=== PATIENT | male | born 1990 | race Caucasian/White ===

== ENCOUNTER 2018-10-10 22:17 | Emergency (ER) | payer MEDICAID, OTHER, SELFPAY ==
--- NOTE | 2018-10-10 23:54 | ERPHSYRPT ---
- History of Present Illness Time Seen by Provider: 10/10/18 23:46 Historian: patient Exam Limitations: no limitations Patient Subjective Stated Complaint: vomiting starting sunday. everything he eats, he vomits up 2 hours later. c/o loose frequent stools Triage Nursing Assessment: right and left upper quadrants of abdomen painful. pt points to stomach as center of painful area. Physician History: 28-year-old white with history of asthma, who has had his appendix removed arrives with complaint of vomiting every time he eats having loose stools symptoms since yesterday. Patient states occasionally has some mild abdominal pain no fevers. Past medical history asthma, Past surgical history includes appendectomy Social history positive for occasional alcohol use positive tobacco use. . Timing/Duration: day(s) Activities at Onset: none (2 days) Quality: other (occasional slight abdominal crampingperiumbilical) Abdominal Pain Onset Location: periumbilical Pain Radiation: no radiation Severity of Pain-Max: none Severity of Pain-Current: none Modifying Factors: Improves With: eating, vomiting. Worsens With: analgesics, antacids, breathing, coughing, defecating, exercise, lying down, urinating, position, walking Associated Symptoms: diarrhea, nausea, vomiting, No back, No chest pain, No diaphoresis, No fever/chills, No fatigue, No headache, No heartburn, No loss of appetite, No neck pain, No rash, No shortness of breath, No syncope, No testicular pain Previous symptoms: no prior history Allergies/Adverse Reactions: pecan Allergy (Uncoded 05/13/14 18:14) turtle meat Allergy (Uncoded 05/13/14 18:14) Hx Tetanus, Diphtheria Vaccination/Date Given: (UNKNOWN) Hx Influenza Vaccination/Date Given: No Hx Pneumococcal Vaccination/Date Given: No - Review of Systems Constitutional: No Fever, No Chills Eyes: No Symptoms Ears, Nose, & Throat: No Symptoms Respiratory: No Cough, No Dyspnea Cardiac: No Chest Pain, No Edema, No Syncope Abdominal/Gastrointestinal: Abdominal Pain (slight abdominal pain periumbilical) , Nausea, Vomiting, Diarrhea, No Constipation, No Hematemesis, No Hematochezia, No Melena, No Dysphagia, No Appetite Changes Genitourinary Symptoms: No Dysuria Musculoskeletal: No Back Pain, No Neck Pain Skin: No Rash Neurological: No Dizziness, No Focal Weakness, No Sensory Changes Psychological: No Symptoms Endocrine: No Symptoms All Other Systems: Reviewed and Negative - Past Medical History Pertinent Past Medical History: Yes Respiratory History: Asthma - Past Surgical History Past Surgical History: Yes Gastrointestinal: Appendectomy - Social History Smoking Status: Current every day smoker How long have you smoked: 6 YEARS Exposure to second hand smoke: Yes Drug Use: none Patient Lives Alone: No - Nursing Vital Signs Nursing Vital Signs: Initial Vital Signs Temperature 98.2 F 10/10/18 22:26 Pulse Rate 85 10/10/18 22:26 Respiratory Rate 20 10/10/18 22:26 Blood Pressure 150/95 10/10/18 22:26 O2 Sat by Pulse Oximetry 100 10/10/18 22:26 Pain Scale Pain Intensity 5 - Physical Exam General Appearance: mild distress, alert Eye Exam: PERRL/EOMI, eyes nml inspection Ears, Nose, Throat Exam: normal ENT inspection, pharynx normal, moist mucous membranes Neck Exam: normal inspection, non-tender, supple, full range of motion Respiratory Exam: normal breath sounds, lungs clear, No respiratory distress Cardiovascular Exam: regular rate/rhythm, normal heart sounds, capillary refill <2 sec Gastrointestinal/Abdomen Exam: soft, No tenderness, No mass Back Exam: normal inspection, normal range of motion, No CVA tenderness, No vertebral tenderness Extremity Exam: normal inspection (and if you see any x-ray reports that cigarettes or so to see him there isas was his nasal cannula down and the other one is probably some), normal range of motion, pelvis stable Neurologic Exam: alert, oriented x 3, cooperative, creative services designer II-XII nml as tested, normal mood/affect, nml cerebellar function, sensation nml, No motor deficits Skin Exam: normal color, warm, dry SpO2 Interpretation: normal (100%) SpO2: 100 - Course Nursing assessment & vital signs reviewed: Yes Ordered Tests: Active Orders 24 hr Category Date Time Status IV Insertion STAT Care 10/10/18 23:50 Active AMYLASE Stat Lab 10/10/18 23:59 Completed CBC W DIFF Stat Lab 10/10/18 23:59 Completed CMP Stat Lab 10/10/18 23:59 Completed LIPASE Stat Lab 10/10/18 23:59 Completed UA W/RFX UR CULTURE Stat Lab 10/10/18 02:36 Completed Urine Triage Profile Stat Lab 10/10/18 02:36 Completed Medication Summary Discontinued Medications Generic Name Dose Route Start Last Admin Trade Name Priya PRN Reason Stop Dose Admin Sodium Chloride 1,000 mls @ 999 mls/hr 10/10/18 23:50 10/11/18 00:01 Sodium Chloride 0.9% 1000 Ml IV 10/11/18 00:50 999 mls/hr .Q1H1M STA Administration Sodium Chloride Confirm 10/10/18 23:59 Sodium Chloride 0.9% 1000 Ml Administered 10/11/18 00:00 Dose 1,000 mls @ ud .ROUTE .STK-MED ONE Sodium Chloride 1,000 mls @ 999 mls/hr 10/11/18 00:41 10/11/18 01:34 Sodium Chloride 0.9% 1000 Ml IV 10/11/18 01:41 999 mls/hr .Q1H1M STA Administration Sodium Chloride Confirm 10/11/18 01:28 Sodium Chloride 0.9% 1000 Ml Administered 10/11/18 01:29 Dose 1,000 mls @ ud .ROUTE .STK-MED ONE Ondansetron HCl 4 mg 10/10/18 23:50 10/11/18 00:01 Zofran 4 Mg/2 Ml Vial IV 10/10/18 23:51 4 mg STAT ONE Administration Ondansetron HCl Confirm 10/10/18 23:59 Zofran 4 Mg/2 Ml Vial Administered 10/11/18 00:00 Dose 4 mg .ROUTE .STK-MED ONE Lab/Rad Data: Laboratory Result Diagrams 10/10/18 23:59 10/10/18 23:59 Laboratory Results 10/10/18 10/10/18 10/10/18 Range/Units 23:59 23:59 02:36 WBC 8.5 (4.0-10.5) K/mm3 RBC 4.80 (4.1-5.6) M/mm3 Hgb 15.1 (12.5-18.0) gm/dl Hct 43.4 (42-50) % MCV 90.4 (78-100) fl MCH 31.5 (26-32) pg MCHC 34.8 (32-36) g/dl RDW 13.1 (11.5-14.0) % Plt Count 198 (150-450) K/mm3 MPV 10.5 H (6-9.5) fl Gran % 68.0 H (36.0-66.0) % Eos # (Auto) 0.17 (0-0.5) Absolute Lymphs (auto) 1.79 (1.0-4.6) Absolute Monos (auto) 0.75 (0.0-1.3) Lymphocytes % 21.0 L (24.0-44.0) % Monocytes % 8.8 (0.0-12.0) % Eosinophils % 2.0 (0.00-5.0) % Basophils % 0.2 (0.0-0.4) % Absolute Granulocytes 5.78 (1.4-6.9) Basophils # 0.02 (0-0.4) Sodium 139 (137-145) mmol/L Potassium 3.8 (3.5-5.1) mmol/L Chloride 101 (98-107) mmol/L Carbon Dioxide 28 (22-30) mmol/L Anion Gap 13.4 (5-15) MEQ/L BUN 13 (9-20) mg/dL Creatinine 0.86 (0.66-1.25) mg/dL Estimated GFR > 60.0 ML/MIN Glucose 89 (74-106) mg/dL Calcium 9.6 (8.4-10.2) mg/dL Total Bilirubin 0.40 (0.2-1.3) mg/dL AST 19 (17-59) U/L ALT 17 (0-50) U/L Alkaline Phosphatase 63 (38-126) U/L Serum Total Protein 7.4 (6.3-8.2) g/dL Albumin 4.3 (3.5-5.0) g/dL Amylase 82 (30-110) U/L Lipase 44 (23-300) U/L Urine Color (YELLOW) Urine Appearance (CLEAR) Urine pH (5-6) Ur Specific [place] (1.005-1.025) Urine Protein (Negative) Urine Ketones (NEGATIVE) Urine Blood (0-5) Chavo/ul Urine Nitrite (NEGATIVE) Urine Bilirubin (NEGATIVE) Urine Urobilinogen (0-1) mg/dL Ur Leukocyte Esterase (NEGATIVE) Urine WBC (Auto) (0-5) /HPF Urine RBC (Auto) (0-2) /HPF U Epithel Cells (Auto) (FEW) /HPF Urine Bacteria (Auto) (NEGATIVE) /HPF Urine Mucus (Auto) (NEGATIVE) /HPF Urine Culture Reflexed (NO) Urine Glucose (NEGATIVE) mg/dL Urine Opiates Level NEGATIVE (NEGATIVE) Ur Methadone NEGATIVE (NEGATIVE) Urine Barbiturates NEGATIVE (NEGATIVE) Ur Phencyclidine (PCP) NEGATIVE (NEGATIVE) Urine Amphetamine NEGATIVE (NEGATIVE) U Benzodiazepine Level NEGATIVE (NEGATIVE) Urine Cocaine NEGATIVE (NEGATIVE) Urine Marijuana (THC) NEGATIVE (NEGATIVE) 10/10/18 Range/Units 02:36 WBC (4.0-10.5) K/mm3 RBC (4.1-5.6) M/mm3 Hgb (12.5-18.0) gm/dl Hct (42-50) % MCV (78-100) fl MCH (26-32) pg MCHC (32-36) g/dl RDW (11.5-14.0) % Plt Count (150-450) K/mm3 MPV (6-9.5) fl Gran % (36.0-66.0) % Eos # (Auto) (0-0.5) Absolute Lymphs (auto) (1.0-4.6) Absolute Monos (auto) (0.0-1.3) Lymphocytes % (24.0-44.0) % Monocytes % (0.0-12.0) % Eosinophils % (0.00-5.0) % Basophils % (0.0-0.4) % Absolute Granulocytes (1.4-6.9) Basophils # (0-0.4) Sodium (137-145) mmol/L Potassium (3.5-5.1) mmol/L Chloride (98-107) mmol/L Carbon Dioxide (22-30) mmol/L Anion Gap (5-15) MEQ/L BUN (9-20) mg/dL Creatinine (0.66-1.25) mg/dL Estimated GFR ML/MIN Glucose (74-106) mg/dL Calcium (8.4-10.2) mg/dL Total Bilirubin (0.2-1.3) mg/dL AST (17-59) U/L ALT (0-50) U/L Alkaline Phosphatase (38-126) U/L Serum Total Protein (6.3-8.2) g/dL Albumin (3.5-5.0) g/dL Amylase (30-110) U/L Lipase (23-300) U/L Urine Color YELLOW (YELLOW) Urine Appearance CLEAR (CLEAR) Urine pH 7.0 (5-6) Ur Specific [place] 1.011 (1.005-1.025) Urine Protein NEGATIVE (Negative) Urine Ketones NEGATIVE (NEGATIVE) Urine Blood NEGATIVE (0-5) Chavo/ul Urine Nitrite NEGATIVE (NEGATIVE) Urine Bilirubin NEGATIVE (NEGATIVE) Urine Urobilinogen NEGATIVE (0-1) mg/dL Ur Leukocyte Esterase NEGATIVE (NEGATIVE) Urine WBC (Auto) NONE (0-5) /HPF Urine RBC (Auto) NONE (0-2) /HPF U Epithel Cells (Auto) NONE (FEW) /HPF Urine Bacteria (Auto) NONE SEEN (NEGATIVE) /HPF Urine Mucus (Auto) SLIGHT (NEGATIVE) /HPF Urine Culture Reflexed NO (NO) Urine Glucose NEGATIVE (NEGATIVE) mg/dL Urine Opiates Level (NEGATIVE) Ur Methadone (NEGATIVE) Urine Barbiturates (NEGATIVE) Ur Phencyclidine (PCP) (NEGATIVE) Urine Amphetamine (NEGATIVE) U Benzodiazepine Level (NEGATIVE) Urine Cocaine (NEGATIVE) Urine Marijuana (THC) (NEGATIVE) - Progress Progress: improved Progress Note: 10/11/18 03:16 Patient feeling better after 2 L of normal saline and Zofran 4 mg IV. No longer vomiting. Able to keep fluids down. Labs essentially negative Will send home with Zofran clear fluids - Departure Departure Disposition: Home Clinical Impression: Vomiting Qualifiers: Vomiting type: unspecified Vomiting Intractability: non-intractable Nausea presence: with nausea Qualified Code(s): R11.2 - Nausea with vomiting, unspecified Condition: Fair Critical Care Time: No Referrals: DOCTOR,NO FAMILY [Primary Care Provider] - Additional Instructions: Return home. Plenty of fluids clear fluids only 24-48 hours if nausea and vomiting. Zofran as prescribed. Followup with your family DrRocio if symptoms are worse no better in 48 hours or persist longer than 72 hours. Return for acute distress severe symptoms or for any problems. Prescriptions: Ondansetron ODT 4 MG [Zofran Odt 4 mg] 4 mg PO Q6H PRN PRN #10 tab.rapdis PRN Reason: nauseaand vomiting
[2018-10-10] MEDS ORDERED: Zofran 4 MG/2 ML VIAL ONE (23:59)
[2018-10-10] MEDS ORDERED: Sodium Chloride 0.9% 1000 ML 1,000 ML ONE (23:59)
[2018-10-11] MEDS: Zofran 4 MG/2 ML VIAL IV ONE (00:01)
[2018-10-11] MEDS: Sodium Chloride 0.9% 1000 ML 1,000 ML IV STA ×2 (00:01→01:34)
[2018-10-11 00:02] LABS: BASOPHIL % 0.2 % (0.0-0.4); Basophil (Absolute #) 0.02 (0-0.4); Eosinophil (Absolute #) 0.17 (0-0.5); Granulocyte Absolute (ANC) 5.78 (1.4-6.9); Hematocrit 43.4 % (42-50); Hemoglobin 15.1 gm/dl (12.5-18.0); Lymphocyte (Absolute #) 1.79 (1.0-4.6); Mean Cell Volume 90.4 fl (78-100); Mean Corpuscular Hemoglobin 31.5 pg (26-32); Mean Corpuscular Hgb Concent. 34.8 g/dl (32-36); Mean Platelet Volume 10.5 fl (6-9.5); Monocyte (Absolute #) 0.75 (0.0-1.3); Monocytes % 8.8 % (0.0-12.0); Platelet Count 198 K/mm3 (150-450); Red Cell Distribution Width 13.1 % (11.5-14.0); White Blood Count 8.5 K/mm3 (4.0-10.5)
[2018-10-11 00:15] LABS: ALBUMIN 4.3 g/dL (3.5-5.0); ALKALINE PHOSPHATASE 63 U/L (38-126); AMYLASE 82 U/L (30-110); ANION GAP 13.4 MEQ/L (5-15); BLOOD UREA NITROGEN 13 mg/dL (9-20); CHLORIDE 101 mmol/L (98-107); Calcium 9.6 mg/dL (8.4-10.2); Carbon Dioxide 28 mmol/L (22-30); Creatinine 1 0.86 mg/dL (0.66-1.25); Glucose 89 mg/dL (74-106); LIPASE 44 U/L (23-300); Potassium 3.8 mmol/L (3.5-5.1); SGOT/AST 19 U/L (17-59); SGPT/ALT 17 U/L (0-50); SODIUM 139 mmol/L (137-145); Total Protein 7.4 g/dL (6.3-8.2)
[2018-10-11] MEDS ORDERED: Sodium Chloride 0.9% 1000 ML 1,000 ML ONE (01:28)
[2018-10-11 02:40] VITALS: BP 121/51
[2018-10-11 02:41] VITALS: PULSE 65
[2018-10-11 02:42] LABS: Appearance CLEAR (CLEAR); Bilirubin NEGATIVE (NEGATIVE); Blood NEGATIVE Ery/ul (0-5); Glucose NEGATIVE (NEGATIVE); Ketones NEGATIVE (NEGATIVE); Leukocyte Esterase NEGATIVE (NEGATIVE); Mucus SLIGHT /HPF (NEGATIVE); Nitrite NEGATIVE (NEGATIVE); Protein,Urine Dip NEGATIVE (Negative); Specific Gravity 1.011 (1.005-1.025); Urobilinogen NEGATIVE mg/dL (0-1)
[2018-10-11 02:47] LABS: Bacteria NONE SEEN /HPF (NEGATIVE)
[2018-10-11 02:56] LABS: Amphetamine,Urine NEGATIVE (NEGATIVE); Barbiturate,Urine NEGATIVE (NEGATIVE); Benzodiazepine,Urine NEGATIVE (NEGATIVE); Cocaine,Urine NEGATIVE (NEGATIVE); Methadone,Urine NEGATIVE (NEGATIVE); Opiate,Urine NEGATIVE (NEGATIVE); PCP,Urine NEGATIVE (NEGATIVE); THC,Urine NEGATIVE (NEGATIVE)
[2018-10-11 03:20] VITALS: O2SAT 100
[2018-10-11] MEDS ORDERED: ZOFRAN ODT 4 MG PO ONE (03:20)
[2018-10-11] MEDS ORDERED: ZOFRAN ODT 4 MG ONE (03:23)
== END 2018-10-11 03:33 | disposition home or self-care (01) ==
LOC: ED 22:17
DX: R11.2 Nausea with vomiting, unspecified (principal)
CPT/HCPCS: 36000; 36415; 80053; 80307; 81001; 82150; 83690; 85025; 96360; 96361; 96374; 99284; J2405; Q0162; G0480

== ENCOUNTER 2020-02-16 20:13 | Emergency (ER) | payer MEDICAID ==
--- NOTE | 2020-02-16 21:19 | ERPHSYRPT ---
- History of Present Illness Time Seen by Provider: 02/16/20 20:30 Source: patient Exam Limitations: no limitations Patient Subjective Stated Complaint: pt states he has been having intermittent cramping abd pain, gas pain, and frequent loose or soft stools. Triage Nursing Assessment: pt alert and oriented, answers qustions approp. pt ambulatory with steady gait noted. respirations nonlabored with lungs cta. abd soft and nontender. bowel sounds present x4. skin pink warm and dry. Physician History: Patient is a 29-year-old male presents to our ED for evaluation of intermittent soft stools gas and abdominal cramping over the past 10 days. Patient states this correlates with increased intake of soda pop. No trauma. No fever. No nausea or vomiting. Diarrhea is nonbloody. Patient is currently asymptomatic. Symptoms are mild to moderate in intensity when present. No specific worsening or improving factors. No recent travel. No recent antibiotic use. Patient works installing [employer]. Patient is otherwise healthy. He voices no other complaints at this time. Timing/Duration: week(s) Severity: moderate Modifying Factors: Improves With: nothing Associated Symptoms: abdominal pain, No nausea, No vomiting, No shortness of breath, No diaphoresis, No cough, No chills, No chest pain, No fever, No headaches, No loss of appetite, No malaise Allergies/Adverse Reactions: pecan Allergy (Uncoded 02/16/20 20:34) turtle meat Allergy (Uncoded 02/16/20 20:34) Home Medications: No Reportable Medications [No Reported Medications] 02/16/20 [History] Hx Tetanus, Diphtheria Vaccination/Date Given: (UNKNOWN) Hx Influenza Vaccination/Date Given: No Hx Pneumococcal Vaccination/Date Given: No Travel Risk - International Travel Have you traveled outside of the country in past 3 weeks: No - Coronavirus Screening Are you exhibiting any of the following symptoms?: No Close contact with a COVID-19 positive Pt in past 14-21 Days: No - Review of Systems Constitutional: No Symptoms, No Fever, No Chills Eyes: No Symptoms Ears, Nose, & Throat: No Symptoms Respiratory: No Symptoms, No Cough, No Dyspnea Cardiac: No Symptoms, No Chest Pain, No Edema, No Syncope Abdominal/Gastrointestinal: No Symptoms, No Abdominal Pain, No Nausea, No Vomiting, No Diarrhea Genitourinary Symptoms: No Symptoms, No Dysuria Musculoskeletal: No Symptoms, No Back Pain, No Neck Pain Skin: No Symptoms, No Rash Neurological: No Symptoms, No Dizziness, No Focal Weakness, No Sensory Changes Psychological: No Symptoms Endocrine: No Symptoms Hematologic/Lymphatic: No Symptoms Immunological/Allergic: No Symptoms All Other Systems: Reviewed and Negative - Past Medical History Pertinent Past Medical History: Yes Respiratory History: Asthma - Past Surgical History Past Surgical History: Yes Gastrointestinal: Appendectomy - Social History Smoking Status: Current every day smoker How long have you smoked: 20 yrs Exposure to second hand smoke: Yes Drug Use: none Patient Lives Alone: No - Nursing Vital Signs Nursing Vital Signs: Initial Vital Signs Temperature 98.1 F 02/16/20 20:21 Pulse Rate 79 02/16/20 20:21 Respiratory Rate 16 02/16/20 20:21 Blood Pressure 167/101 02/16/20 20:21 O2 Sat by Pulse Oximetry 99 02/16/20 20:21 Pain Scale Pain Intensity 0 - Physical Exam General Appearance: no apparent distress, alert Eye Exam: PERRL/EOMI, eyes nml inspection Ears, Nose, Throat Exam: normal ENT inspection, TMs normal, pharynx normal, moist mucous membranes Neck Exam: normal inspection, non-tender, supple, full range of motion Respiratory Exam: normal breath sounds, lungs clear, No respiratory distress Cardiovascular Exam: regular rate/rhythm, normal heart sounds, normal peripheral pulses Gastrointestinal/Abdomen Exam: soft, normal bowel sounds, other (Post appendectomy surgical scars observed. Scars well-healed. Abdominal exam is benign.), No tenderness, No mass Back Exam: normal inspection, normal range of motion, No CVA tenderness, No vertebral tenderness Extremity Exam: normal inspection, normal range of motion, pelvis stable Neurologic Exam: alert, oriented x 3, cooperative, normal mood/affect, nml cerebellar function, nml station & gait, sensation nml, No motor deficits Skin Exam: normal color, warm, dry, No rash Lymphatic Exam: No adenopathy SpO2 Interpretation: normal SpO2: 99 O2 Delivery: Room Air - Course Nursing assessment & vital signs reviewed: Yes - CT Exams Abdomen/Pelvis CT Interpretation: Tele-radiologist Report (Negative abdomen pelvis CT scan.) Ordered Tests: Active Orders 24 hr Category Date Time Status ABDOMEN AND PELVIS W/0 CONTRAS [CT] Stat Exams 02/16/20 20:29 Taken UA W/RFX UR CULTURE Stat Lab 02/16/20 21:07 Ordered - Progress Progress: improved Progress Note: 02/16/20 21:24 Patient reassessed. He remains asymptomatic. CT scan negative for acute intra- abdominal pathology. It appears that patient has a acute diarrheal illness. No indication for antibiotics. No recent travel. Patient given instructions on a brat diet. Patient also advised to try [id number] loperamide. This information was given to patient and he has not stored in his phone. Patient requested a work note. Work note granted. Patient voices no other complaints concerns at this time. Patient states he is ready for discharge. - Departure Departure Disposition: Home Clinical Impression: Acute diarrhea Condition: Stable Critical Care Time: No Referrals: YARITZA NELSON MD [ACTIVE STAFF] - Additional Instructions: Discharge/Care Plan GILL GUSTAFSON was seen on 02/16/20 in the Emergency Room. The patient was counseled regarding Diagnosis,Lab results, Imaging studies, need for follow up and when to return to the Emergency Room. Prescriptions given: Discharge Note I have spoken with the patient and/or caregivers. I have explained the patient's condition, diagnosis and treatment plan based on the information available to me at this time. I have answered the patient's and/or caregiver's questions and addressed any concerns. The patient and/or caregivers have as good understanding of the patient's diagnosis, condition and treatment plan as can be expected at this point. The vital signs have been stable. The patient's condition is stable and appropriate for discharge from the emergency department. The patient will pursue further outpatient evaluation with the primary care physician or other designated or consulting physician as outlined in the discharge instructions. The patient and/or caregivers are agreeable to this plan of care and follow-up instructions have been explained in detail. The patient and/or caregivers have received these instruction. The patient/and or caregivers are aware that any significant change in condition or worsening of symptoms should prompt an immediate return to this or the closest emergency department or call 911. Forms: Work/School Release Form
[2020-02-16 21:45] LABS: Appearance CLEAR (CLEAR); Bilirubin NEGATIVE (NEGATIVE); Blood NEGATIVE Ery/ul (0-5); Glucose NEGATIVE (NEGATIVE); Ketones NEGATIVE (NEGATIVE); Leukocyte Esterase NEGATIVE (NEGATIVE); Nitrite NEGATIVE (NEGATIVE); Protein,Urine Dip NEGATIVE (Negative); Specific Gravity 1.004 (1.005-1.025); Urobilinogen NEGATIVE mg/dL (0-1)
[2020-02-16 21:50] VITALS: BP 138/85; PULSE 76; O2SAT 98
--- NOTE | 2020-02-17 08:51 | XRAY ---
Indication: Abdomen pain. Multiple contiguous axial images obtained through the abdomen and pelvis without contrast as ordered. Comparison: December 11, 2006. Lung bases remain clear. Heart is not enlarged. Stomach is mildly distended with food/fluid. Noncontrasted stomach and bowel loops appear nonobstructed. Previous appendectomy. No free fluid/air. Gallbladder contracted without gallstones. Remaining liver, gallbladder, pancreas, spleen, adrenal glands, kidneys, ureters, bladder, and aorta appear unremarkable for noncontrast exam. Again small centimeter/subcentimeter periaortic lymph nodes, none pathologically enlarged. Osseous structures intact. No ventral or inguinal hernias. Impression: Again small periaortic lymph nodes presumed reactive. Remaining CT abdomen/pelvis without contrast exam is negative.
== END 2020-02-16 21:53 | disposition home or self-care (01) ==
LOC: ED 20:13
DX: M25.579 Pain in unspecified ankle and joints of unspecified foot (principal); R19.7 Diarrhea, unspecified
CPT/HCPCS: 74176; 81001; 99284

== ENCOUNTER 2020-11-20 20:19 | Emergency (ER) | payer MEDICAID, OTHER ==
--- NOTE | 2020-11-20 20:58 | ERPHSYRPT ---
- History of Present Illness Time Seen by Provider: 11/20/20 20:52 Source: patient Exam Limitations: no limitations Patient Subjective Stated Complaint: C/O N/V and fever. States has had some body aches today. Denies SOB or chest pain. States when he vomits, his lower back hurts. Triage Nursing Assessment: Patient ambulated to room without difficulties. Face is flushed, skin warm to touch. No SOB noted. No cough noted. No vomiting noted during assessment. Patient states last vomited at 1920; undigested food. Hypoactive bowel sounds present. Patient c/o some right sided tenderness with palpation of abdomen. Physician History: C/O N/V and fever. States has had some body aches today. Denies SOB or chest pain. States when he vomits, his lower back hurts.Patient also complaining of generalized body ache. Patient denies any positive Covid contact. Patient has not taken Covid vaccine. Timing/Duration: today Severity: mild Associated Symptoms: nausea, vomiting, abdominal pain, headaches, malaise, weakness Allergies/Adverse Reactions: pecan nut Allergy (Verified 11/20/20 20:47) pecan Allergy (Uncoded 02/16/20 20:34) turtle meat Allergy (Uncoded 02/16/20 20:34) Home Medications: No Reportable Medications [No Reported Medications] 02/16/20 [History] Hx Tetanus, Diphtheria Vaccination/Date Given: Yes Hx Influenza Vaccination/Date Given: No Hx Pneumococcal Vaccination/Date Given: No Immunizations Up to Date: Yes Travel Risk - International Travel Have you traveled outside of the country in past 3 weeks: No - Coronavirus Screening Are you exhibiting any of the following symptoms?: Yes Symptoms: Fever, Vomiting/Diarrhea, Headaches/Body Aches/Fatigue Close contact with a COVID-19 positive Pt in past 14-21 Days: No - Vaccine Status Have you recieved a Covid-19 vaccination: No - Review of Systems Constitutional: Fever, Chills, Malaise Eyes: No Symptoms Ears, Nose, & Throat: No Symptoms Respiratory: No Cough, No Dyspnea Cardiac: No Chest Pain, No Edema, No Syncope Abdominal/Gastrointestinal: Abdominal Pain, Nausea, Vomiting, No Diarrhea Genitourinary Symptoms: No Dysuria Musculoskeletal: Arthralgias, Back Pain, No Neck Pain Skin: No Rash Neurological: No Dizziness, No Focal Weakness, No Sensory Changes Psychological: No Symptoms Endocrine: No Symptoms All Other Systems: Reviewed and Negative - Past Medical History Pertinent Past Medical History: No Neurological History: No Pertinent History ENT History: No Pertinent History Cardiac History: No Pertinent History Respiratory History: No Pertinent History Endocrine Medical History: No Pertinent History Musculoskeletal History: No Pertinent History GI Medical History: No Pertinent History History: No Pertinent History Psycho-Social History: No Pertinent History Male Reproductive Disorders: No Pertinent History - Past Surgical History Past Surgical History: Yes Neuro Surgical History: No Pertinent History Cardiac: No Pertinent History Respiratory: No Pertinent History Gastrointestinal: Appendectomy Genitourinary: No Pertinent History Musculoskeletal: No Pertinent History Male Surgical History: No Pertinent History - Social History Smoking Status: Current every day smoker How long have you smoked: 15 years Exposure to second hand smoke: No Drug Use: none Patient Lives Alone: No - Nursing Vital Signs Nursing Vital Signs: Initial Vital Signs Temperature 100.4 F 11/20/20 20:36 Pulse Rate 79 11/20/20 20:36 Respiratory Rate 20 11/20/20 20:36 Blood Pressure 140/81 11/20/20 20:36 O2 Sat by Pulse Oximetry 99 11/20/20 20:36 - Physical Exam General Appearance: no apparent distress, alert Eye Exam: PERRL/EOMI, eyes nml inspection Ears, Nose, Throat Exam: normal ENT inspection, TMs normal, pharynx normal, moist mucous membranes Neck Exam: normal inspection, non-tender, supple, full range of motion Respiratory Exam: normal breath sounds, lungs clear, No respiratory distress Cardiovascular Exam: regular rate/rhythm, normal heart sounds, normal peripheral pulses Gastrointestinal/Abdomen Exam: soft, normal bowel sounds, No tenderness, No mass Back Exam: normal inspection, normal range of motion, No CVA tenderness, No vertebral tenderness Extremity Exam: normal inspection, normal range of motion, pelvis stable Neurologic Exam: alert, oriented x 3, cooperative, normal mood/affect, nml cerebellar function, nml station & gait, sensation nml, No motor deficits Skin Exam: normal color, warm, dry, No rash Lymphatic Exam: No adenopathy SpO2: 99 - Course Nursing assessment & vital signs reviewed: Yes - Radiology Exams Chest X-ray Interpretation: Reviewed by me (? very early intertitial infiltrate, right lower lobe) Ordered Tests: Active Orders 24 hr Category Date Time Status CHEST 1 VIEW (PORTABLE) Stat Exams 11/20/20 21:06 Taken KUB Stat Exams 11/20/20 21:06 Taken AMYLASE Stat Lab 11/20/20 21:15 Completed CBC W DIFF Stat Lab 11/20/20 21:15 Completed CMP Stat Lab 11/20/20 21:15 Completed LIPASE Stat Lab 11/20/20 21:15 Completed Medication Summary Discontinued Medications Generic Name Dose Route Start Last Admin Trade Name Mateuszq PRN Reason Stop Dose Admin Sodium Chloride 1,000 mls @ 999 mls/hr 11/20/20 21:01 11/20/20 21:05 Sodium Chloride 0.9% 1000 Ml IV 11/20/20 22:01 999 mls/hr .Q1H1M STA Administration Sodium Chloride Confirm 11/20/20 21:04 Sodium Chloride 0.9% 1000 Ml Administered 11/20/20 21:05 Dose 1,000 mls @ ud .ROUTE .STK-MED ONE Ondansetron HCl 4 mg 11/20/20 21:01 11/20/20 21:05 Zofran 4 Mg/2 Ml Vial IV 11/20/20 21:02 4 mg STAT ONE Administration Ondansetron HCl Confirm 11/20/20 21:04 Zofran 4 Mg/2 Ml Vial Administered 11/20/20 21:05 Dose 4 mg .ROUTE .STK-MED ONE Lab/Rad Data: Laboratory Result Diagrams 11/20/20 21:15 11/20/20 21:15 Laboratory Results 11/20/20 11/20/20 Range/Units 21:15 21:15 WBC 3.4 L (4.0-10.5) K/mm3 RBC 4.49 (4.1-5.6) M/mm3 Hgb 13.6 (12.5-18.0) gm/dl Hct 41.3 L (42-50) % MCV 92.0 (78-100) fl MCH 30.3 (26-32) pg MCHC 32.9 (32-36) g/dl RDW 13.0 (11.5-14.0) % Plt Count 131 L (150-450) K/mm3 MPV 11.1 H (7.5-11.0) fl Gran % 61.2 (36.0-66.0) % Eos # (Auto) 0.01 (0-0.5) Absolute Lymphs (auto) 0.65 L (1.0-4.6) Absolute Monos (auto) 0.66 (0.0-1.3) Lymphocytes % 19.0 L (24.0-44.0) % Monocytes % 19.2 H (0.0-12.0) % Eosinophils % 0.3 (0.00-5.0) % Basophils % 0.3 (0.0-0.4) % Absolute Granulocytes 2.10 (1.4-6.9) Basophils # 0.01 (0-0.4) Sodium 137 (137-145) mmol/L Potassium 3.6 (3.5-5.1) mmol/L Chloride 104 (98-107) mmol/L Carbon Dioxide 22 (22-30) mmol/L Anion Gap 14.9 (5-15) MEQ/L BUN 13 (9-20) mg/dL Creatinine 0.93 (0.66-1.25) mg/dL Estimated GFR > 60.0 ML/MIN Glucose 84 (74-106) mg/dL Calcium 8.8 (8.4-10.2) mg/dL Total Bilirubin 0.30 (0.2-1.3) mg/dL AST 36 (17-59) U/L ALT 23 (0-50) U/L Alkaline Phosphatase 73 (38-126) U/L Serum Total Protein 6.7 (6.3-8.2) g/dL Albumin 4.1 (3.5-5.0) g/dL Amylase 77 (30-110) U/L Lipase 69 (23-300) U/L - Progress Progress: improved Counseled pt/family regarding: lab results, diagnosis, need for follow-up, rad results - Departure Departure Disposition: Home Clinical Impression: Nonspecific syndrome suggestive of viral illness, COVID-19 determined by clinical diagnostic criteria Condition: Stable Critical Care Time: No Referrals: DOCTOR,NO FAMILY [Primary Care Provider] - AMANDA GONZALEZ MD [ACTIVE STAFF] - Follow Up with PCP/3 days Instructions: Coronavirus Disease 2019 (COVID-19) (DC) Additional Instructions: Please call your primary care physician or the hospital lab to confirm your diagnosis as we have sent nasal swab for PCR testing for Covid. Till then quarantine your self. Please read the instruction about Covid. Stay hydrated by drinking lots of p.o. fluid. Take Tylenol and ibuprofen 1 tablet each 3 times a day for fever and body ache. Follow-up with your primary care physician on Sunday by calling their office for final lab results for Covid. GILL GUSTAFSON was seen on 11/20/20 n the Emergency Room. At that time you were treated for an emergent condition, during your visit Laboratory, Radiology and/or other procedures may have been ordered. It is very important that you follow-up with your Primary Care Physician NO FAMILY DOCTOR within the next 24- 48 hours to review your Emergency Room visit and the final results of testing that was ordered. Some test results such as Urine Cultures, Blood Cultures, and other cultures if ordered will not be finalized for 24-48 hours. If you do not have a Primary Care Provider please call the medical records department at [phone] to obtain a copy of your results or you may sign into our patient portal to obtain these results by visiting us @ [email or web address] and completing the following steps: 1. Click on the Patient Portal link 2. Click the Patient Self Enrollment Link to complete the enrollment form and entering your 3. Once the enrollment form is completed you will receive an email with a temporary ID and password at the email address you provided. 4. Next choose a user name and password. Your user name must be at least 4 characters long and your password must be at least 4 characters long. 5. Choose a security question from the list and provide your answer to the question. If you already have signed into the Health Portal you may access your Health Care Information 02/10 by the following steps: 1. Login to our website @ [email or web address] 2. Enter your original user name and password. FAQS The [facility] Health Portal is an online tool that contains your Lab Results, Radiology Reports, Visit History, Discharge Instructions and Health Summary Lab and Radiology Results will not be available for 72 hours on the portal. The Portal is a secure site, passwords are encryted and URLs are re-written so they cannot be copied and pasted. You and authorized family members are the only ones who can access your Portal. Also there is a timeout feature that protects your information if you leave the Portal page open. If you have technical difficulty please use the Contact Us link on the page this will allow you to submit any questions you have regarding the Portal or you may contact the Medical Record Department at [phone] ext [phone]. Forms: Work/School Release Form
[2020-11-20] MEDS ORDERED: Zofran 4 MG/2 ML VIAL IV ONE (21:01)
[2020-11-20] MEDS ORDERED: Sodium Chloride 0.9% 1000 ML 1,000 ML IV STA (21:01)
[2020-11-20] MEDS ORDERED: Sodium Chloride 0.9% 1000 ML 1,000 ML ONE (21:04)
[2020-11-20] MEDS ORDERED: Zofran 4 MG/2 ML VIAL ONE (21:04)
[2020-11-20 21:31] LABS: BASOPHIL % 0.3 % (0.0-0.4); Basophil (Absolute #) 0.01 (0-0.4); Eosinophil % 0.3 % (0.00-5.0); Eosinophil (Absolute #) 0.01 (0-0.5); Hematocrit 41.3 % (42-50); Hemoglobin 13.6 gm/dl (12.5-18.0); Lymphocyte (Absolute #) 0.65 (1.0-4.6); Mean Corpuscular Hemoglobin 30.3 pg (26-32); Mean Corpuscular Hgb Concent. 32.9 g/dl (32-36); Mean Platelet Volume 11.1 fl (7.5-11.0); Monocyte (Absolute #) 0.66 (0.0-1.3); Monocytes % 19.2 % (0.0-12.0); Neutrophil % 61.2 % (36.0-66.0); Platelet Count 131 K/mm3 (150-450); Red Blood Count 4.49 M/mm3 (4.1-5.6); White Blood Count 3.4 K/mm3 (4.0-10.5)
[2020-11-20 21:40] LABS: ALBUMIN 4.1 g/dL (3.5-5.0); ALKALINE PHOSPHATASE 73 U/L (38-126); AMYLASE 77 U/L (30-110); ANION GAP 14.9 MEQ/L (5-15); BLOOD UREA NITROGEN 13 mg/dL (9-20); CHLORIDE 104 mmol/L (98-107); Calcium 8.8 mg/dL (8.4-10.2); Carbon Dioxide 22 mmol/L (22-30); Creatinine 1 0.93 mg/dL (0.66-1.25); EST GLOMERULAR FILTRATION RATE > 60.0 ML/MIN; Glucose 84 mg/dL (74-106); LIPASE 69 U/L (23-300); Potassium 3.6 mmol/L (3.5-5.1); SGOT/AST 36 U/L (17-59); SGPT/ALT 23 U/L (0-50); SODIUM 137 mmol/L (137-145); Total Protein 6.7 g/dL (6.3-8.2)
[2020-11-20 22:15] VITALS: BP 125/74; PULSE 74; O2SAT 97
--- NOTE | 2020-11-21 07:18 | XRAY ---
Indication: Fever. Abdomen pain. Suspect Covid 19. Comparison: December 10, 2006. Portable chest demonstrates normal heart, lungs, and bony thorax.
--- NOTE | 2020-11-21 07:18 | XRAY ---
Indication: Abdomen pain. Suspect Covid 19. Comparison: December 09, 2006 KUB nonacute and nonobstructed. Solid organs and osseous structures unremarkable.
== END 2020-11-20 22:28 | disposition home or self-care (01) ==
LOC: ED 20:19
DX: B34.9 Viral infection, unspecified (principal); U07.1 COVID-19; R50.9 Fever, unspecified; M79.18 Myalgia, other site; R11.2 Nausea with vomiting, unspecified; R10.9 Unspecified abdominal pain; R51.9 Headache, unspecified; R53.1 Weakness
CPT/HCPCS: 36000; 36415; 71045; 74018; 80053; 82150; 83690; 85025; 96360; 96374; 99284; U0003; J2405

== ENCOUNTER 2021-02-08 19:20 | Emergency (ER) | payer SELFPAY ==
--- NOTE | 2021-02-08 19:22 | ERPHSYRPT ---
- History of Present Illness Time Seen by Provider: 02/08/21 19:21 Source: patient Exam Limitations: no limitations Physician History: This is a 30-year-old white male who presents with 2 to 3-day history of sore throat and mild cough. Patient states that he does not want a Covid test. He is just concerned about having strep throat and wants to avoid getting sinusitis. Patient does not want a chest x-ray. He has no chest pain. He has no shortness of breath. He has no nausea vomiting or diarrhea. He has no abdominal pain. He has not been around anybody that has similar symptoms. Timing/Duration: day(s) (2 to 3 days) Cough Quality/Degree: mild, dry cough Possible Cause: no prior episodes Modifying Factors: Improves With: activity Associated Symptoms: cough (Mild), sore throat, No fever, No chest pain/soreness, No headache, No shortness of breath Allergies/Adverse Reactions: pecan nut Allergy (Verified 02/08/21 19:30) pecan Allergy (Uncoded 02/08/21 19:30) turtle meat Allergy (Uncoded 02/08/21 19:30) Hx Tetanus, Diphtheria Vaccination/Date Given: (UNKNOWN) Hx Influenza Vaccination/Date Given: No Hx Pneumococcal Vaccination/Date Given: No Travel Risk - International Travel Have you traveled outside of the country in past 3 weeks: No - Coronavirus Screening Are you exhibiting any of the following symptoms?: No Close contact with a COVID-19 positive Pt in past 14-21 Days: No - Vaccine Status Have you recieved a Covid-19 vaccination: No - Review of Systems Constitutional: No Symptoms Eyes: No Symptoms Ears, Nose, & Throat: Throat Pain Respiratory: Cough (Mild), No Dyspnea Cardiac: No Symptoms, No Chest Pain Abdominal/Gastrointestinal: No Symptoms Genitourinary Symptoms: No Symptoms Musculoskeletal: No Symptoms Skin: No Symptoms Neurological: No Symptoms Psychological: No Symptoms Endocrine: No Symptoms Hematologic/Lymphatic: No Symptoms Immunological/Allergic: No Symptoms All Other Systems: Reviewed and Negative - Past Medical History Pertinent Past Medical History: Yes Neurological History: No Pertinent History ENT History: No Pertinent History Cardiac History: No Pertinent History Respiratory History: Asthma Endocrine Medical History: No Pertinent History Musculoskeletal History: No Pertinent History GI Medical History: No Pertinent History History: No Pertinent History Psycho-Social History: No Pertinent History Male Reproductive Disorders: No Pertinent History - Past Surgical History Past Surgical History: Yes Neuro Surgical History: No Pertinent History Cardiac: No Pertinent History Respiratory: No Pertinent History Gastrointestinal: Appendectomy Genitourinary: No Pertinent History Musculoskeletal: No Pertinent History Male Surgical History: No Pertinent History - Social History Smoking Status: Current every day smoker How long have you smoked: 20 yrs Exposure to second hand smoke: Yes Drug Use: none Patient Lives Alone: No - Nursing Vital Signs Nursing Vital Signs: Initial Vital Signs Temperature 97.8 F 02/08/21 19:31 Pulse Rate 67 02/08/21 19:31 Respiratory Rate 16 02/08/21 19:31 Blood Pressure 147/78 02/08/21 19:31 O2 Sat by Pulse Oximetry 98 02/08/21 19:31 Pain Scale Pain Intensity 0 - Physical Exam General Appearance: no apparent distress, alert Eye Exam: PERRL/EOMI, eyes nml inspection Ears, Nose, Throat Exam: pharyngeal erythema (Pharyngeal swelling with mild swelling of uvula) Neck Exam: normal inspection, non-tender, supple, full range of motion Respiratory Exam: normal breath sounds, lungs clear, airway intact, No chest tenderness, No respiratory distress Cardiovascular Exam: regular rate/rhythm, normal heart sounds, normal peripheral pulses Gastrointestinal/Abdomen Exam: soft, normal bowel sounds, No tenderness Rectal Exam: not done Back Exam: normal inspection, normal range of motion, No CVA tenderness, No vertebral tenderness Extremity Exam: normal inspection, normal range of motion, pelvis stable Neurologic Exam: alert, oriented x 3, cooperative, 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, normal mood/affect, nml cerebellar function, nml station & gait, sensation nml Skin Exam: normal color, warm, dry Lymphatic Exam: No adenopathy SpO2 Interpretation: normal O2 Delivery: Room Air - Course Nursing assessment & vital signs reviewed: Yes Ordered Tests: Medication Summary Generic Name Dose Route Start Last Admin Trade Name Freq PRN Reason Stop Dose Admin Prednisone 20 mg 02/09/21 20:01 Prednisone 20 Mg Tablet PO 02/09/21 20:02 STAT ONE Discontinued Medications Generic Name Dose Route Start Last Admin Trade Name Freq PRN Reason Stop Dose Admin Azithromycin 500 mg 02/08/21 19:58 Azithromycin 250 Mg Tablet PO 02/08/21 19:59 STAT ONE - Progress Progress: unchanged Air Movement: good Blood Culture(s) Obtained: No Antibiotics given: Yes Counseled pt/family regarding: diagnosis, need for follow-up - Departure Departure Disposition: Home Clinical Impression: Pharyngitis, Uvulitis Condition: Stable Critical Care Time: No Referrals: DOCTOR,NO FAMILY [Primary Care Provider] - Follow up/PCP as directed Additional Instructions: Drink plenty of cool liquids. Take your medication as prescribed. Follow-up with your primary care physician for persistent symptoms. Prescriptions: Prednisone 10 mg [Deltasone 10 mg] 10 mg PO TID #12 tablet Azithromycin 250 mg [Zithromax 250 MG TABLET] 250 mg PO ZPACK #6 tablet
[2021-02-08 19:45] VITALS: PULSE 67
[2021-02-08] MEDS ORDERED: Zithromax 250 MG TABLET PO ONE (19:58)
[2021-02-08] MEDS ORDERED: Zithromax 250 MG TABLET ONE (20:04)
[2021-02-08] MEDS ORDERED: DELTASONE 20 MG ONE (20:04)
[2021-02-08 20:07] VITALS: BP 138/83; O2SAT 99
[2021-02-09] MEDS ORDERED: DELTASONE 20 MG PO ONE (20:01)
== END 2021-02-08 20:13 | disposition home or self-care (01) ==
LOC: ED 19:20
DX: J02.9 Acute pharyngitis, unspecified (principal); K12.2 Cellulitis and abscess of mouth; R05.9 Cough, unspecified; Z72.0 Tobacco use
CPT/HCPCS: 99283; A9270-GY